=== PATIENT | male | born 1985 | race Caucasian/White ===

== ENCOUNTER → 2023-04-01 03:25 | Outpatient (CLI) | payer BC, SELFPAY ==
--- NOTE | 2023-04-01 | DI.MRI_ITS ---
Exam(s) MR ABDOMEN WO/W EXAM: MR ABDOMEN WO/W CLINICAL HISTORY: F/U ABNL CT AT [facility] [place] SHOWING ADRENAL MASS, E27.8 TECHNIQUE: Multiplanar multisequence MRI of the Abdomen was performed. CONTRAST MATERIAL: IV Contrast: 20 mL of Dotarem contrast administered. COMPARISON: CT CT ANGIO CHEST WITH ABD PELVIS BD from 01/19/2023 FINDINGS: Liver: There is a 6 mm nonenhancing simple cyst in the posterior segment of the right lobe of the odalys er. No follow-up is recommended. Pancreas: Unremarkable. Gallbladder and Bile Ducts: No evidence of cholelithiasis. No biliary ductal dilatation. Adrenals: The nodular density in the right adrenal gland corresponds to fat on all pulse sequences. F indings are consistent with a benign adenoma. Kidneys: Unremarkable. Spleen: Unremarkable. Bowel: Unremarkable. Aorta: Unremarkable. Soft Tissues: Unremarkable. Bone: Unremarkable. Lymph Nodes: Unremarkable. IMPRESSION: Findings consistent with a benign adenoma of the right adrenal gland. DATA REPOSITORY:
[2023-04-01] MEDS: Normal Saline - Diluent 50 ML VIAL 25 ML IJ (09:06)
[2023-04-01] MEDS: Gadoterate meglumine 20 ML VIAL IVP (09:07)
--- NOTE | 2023-04-01 12:53 | DI.VRAD_ITS ---
Addendum created by Justina Woods DO on 04/01/2023 12:53:58 PM EDT: The findings for the adrenal gland should read: The nodular density in the right adrenal gland corresponds to fat signal on all pulse sequences. Findings are consistent with benign adenoma Initial report created on 04/01/2023 12:52:37 PM EDT: PROCEDURE INFORMATION: Exam: MR Abdomen Without and With Contrast; Kidneys Exam date and time: 04/01/2023 8:48 AM Age: 37 years old Clinical indication: Abnormal findings; Abnormal radiologic finding of the abdomen; Patient HX: Adrenal mass on CT TECHNIQUE: Imaging protocol: Magnetic resonance imaging of the abdomen without and with contrast. Exam focused on the kidneys. Contrast material: DOTAREM; Contrast volume: 20 ml; Contrast route: INTRAVENOUS (IV); COMPARISON: No relevant prior studies available. FINDINGS: Heart: The nodular density in the right adrenal gland corresponds to fat signal on all pulse sequences. Findings are consistent with benign adenoma. Liver: Subcentimeter cyst in the right lobe of the liver. Adrenal glands: Unremarkable. No mass. Kidneys and ureters: Unremarkable. No solid mass. No hydronephrosis. Intraperitoneal space: No free fluid. IMPRESSION: 1. Findings consistent with benign adenoma in the right adrenal gland. 2. Incidental note is made of a subcentimeter cyst in the right lobe of the liver Dictated and Authenticated by: Justina Woods MD. Ordering:LISA Ceron MD
== END ==
PROVIDERS: PCP Nurse Practitioner Family; Visit Provider Family Medicine
DX: E27.8 Other specified disorders of adrenal gland (principal)
CPT/HCPCS: 74183

== ENCOUNTER 2024-09-09 02:25 | Outpatient (CLI) | payer OTHER, SELFPAY ==
[2024-09-09 12:56] LABS: ALT 38 U/L (16-63); AST 25 U/L (15-37); Albumin 4.2 g/dL (3.4-5.0); Alkaline Phosphatase 103 U/L (46-116); Anion Gap 5.8 mmol/L (3-11); BUN 16 mg/dL (7-18); Bilirubin, Total 0.7 mg/dL (0.2-1.0); CO2 31.2 mmol/L (21.0-32.0); CREATININE 1.3 mg/dL (0.70-1.30); Calcium 9.6 mg/dL (8.5-10.1); Calculated LDL 121 mg/dL (<100); Chloride 107 mmol/L (98-107); Cholesterol 184 mg/dL (<200); Estimated GFR 72.11 (mL/min/1.73m2); Glucose 96 mg/dL (74-106); HDL Cholesterol 51 mg/dL (>or=40); Sodium 144 mmol/L (136-145); TSH 1.05 uIU/mL (0.36-3.74); Total Protein 7.5 g/dL (6.4-8.2); Triglyceride 60 mg/dL (<150)
[2024-09-09 13:00] LABS: Lithium < 0.2 mmol/L (0.6-1.2)
== END 2024-09-09 02:26 | disposition home or self-care (01) ==
LOC: LOS 02:25
PROVIDERS: PCP Nurse Practitioner Family; Visit Provider Family Medicine
DX: F10.20 Alcohol dependence, uncomplicated (principal); Z13.6 Encounter for screening for cardiovascular disorders; Z79.899 Other long term (current) drug therapy
CPT/HCPCS: 36415; 80053; 80061; 80178; 84443